=== PATIENT | male | born 1995 | race Caucasian/White ===

== ENCOUNTER 2018-05-20 13:36 | Emergency (ER) | payer OTHER, BC ==
[2018-05-20 13:49] VITALS: BP 121/75
--- NOTE | 2018-05-20 14:18 | XRAY Report ---
Reason: Fall/pain Procedure Date: 05/20/2018 Accession Number: [id number] / [id number] Procedure: XR - Foot 3 View RT CPT Code: FULL RESULT: EXAM: RIGHT FOOT RADIOGRAPHY EXAM DATE: 05/20/2018 02:03 PM. CLINICAL HISTORY: Fall/pain. Pain involving right toes after fall off a roof today. COMPARISON: None. TECHNIQUE: 3 views. FINDINGS: Bones: Acute right second metatarsal neck fracture with mild apex medial angulation. Acute right third metatarsal neck fracture with one half shaft width displacement and apex medial angulation. Acute right fourth metatarsal neck fracture with mild displacement and apex medial angulation. Mild hallux valgus. No dislocation. Normal 34 degree Boehler angle. No radiographic evidence for calcaneal fracture. Joints: Normal tarsal metatarsal joint alignment. Mild hallux valgus. The second tarsometatarsal joint space appears prominent on AP view, question of due to joint effusion. Soft Tissues: Normal. No soft tissue swelling. IMPRESSION: 1. Acute right second, third and fourth metatarsal neck fractures with angulation and displacement detailed above. 2. No radiographic evidence for calcaneal fracture. If high clinical suspicion, consider MRI. [facility]
--- NOTE | 2018-05-20 14:39 | ED Physician Documentation ---
PD HPI LOWER EXT INJURY - Stated complaint Stated Complaint: GLF - Chief complaint Chief Complaint: Ext Problem - History obtained from History obtained from: Patient - History of Present Illness PD HPI LOW EXT INJURY LOCATION: Other (He was up on a roof and his foot got caught and he fell landing directly on the right foot. No other injuries. No head or neck injury. He cannot walk or bear weight on that leg.) Review of Systems Constitutional: denies: Fever, Chills Cardiac: denies: Chest pain / pressure Respiratory: denies: Dyspnea Musculoskeletal: reports: Pain with weight bearing Neurologic: denies: Headache, Head injury PD PAST MEDICAL HISTORY - Past Medical History Past Medical History: No - Past Surgical History Past Surgical History: Yes General: Hiatal hernia repair HEENT: Tonsil/Adenoidectomy - Present Medications Home Medications: Ambulatory Orders Medication Instructions Recorded Confirmed Hydrocodone/Acetaminophen 1 - 2 each PO Q6H PRN #20 tablet 05/20/18 [Hydrocodon-Acetaminophen 5-325] Knee Scooter 1 unit TD ONCE #1 05/20/18 - Allergies Allergies/Adverse Reactions: Allergies Allergy/AdvReac Type Severity Reaction Status Date / Time No Known Drug Allergies Allergy Verified 05/20/18 13:49 - Social History Does the pt smoke?: No Smoking Status: Never smoker Does the pt drink ETOH?: No Does the pt have substance abuse?: No Substance Use and Type: Marijuana - Immunizations Immunizations are current?: Yes - POLST Patient has POLST: No PD ED PE NORMAL - Vitals Vital signs reviewed: Yes - General General: Alert and oriented X 3, No acute distress - HEENT HEENT: PERRL - Neck Neck: Supple, no meningeal sign, No bony TTP - Extremities Extremities: Other (Focal tenderness of the distal right foot without deformity. Toes are warm and well perfused with normal sensation. No ankle or proximal leg tenderness.) - Neuro Neuro: Alert and oriented X 3 - Psych Psych: Normal mood, Normal affect Results - Vitals Vitals: Vital Signs - 24 hr 05/20/18 13:44 Temperature 36.8 C Heart Rate 55 L Respiratory 16 Rate Blood Pressure 121/75 O2 Saturation 100 Oxygen O2 Source Room air - Rads (name of study) 3v R foot Radiology: EMP read contemporaneously (Angulated and displaced second third and fourth metatarsal neck fractures.) Procedures - Splint (location) RLE Splint applied by: Tech Type of splint: Fiberglass, Short leg, Posterior Other: Patient tolerated well, No complications, Neurovascular intact PD MEDICAL DECISION MAKING - Sepsis Event Vital Signs: Vital Signs - 24 hr 05/20/18 13:44 Temperature 36.8 C Heart Rate 55 L Respiratory 16 Rate Blood Pressure 121/75 O2 Saturation 100 Oxygen O2 Source Room air Departure - Departure Disposition: 01 Home, Self Care Clinical Impression: Fracture of second metatarsal bone of right foot Qualifiers: Encounter type: initial encounter Fracture type: closed Fracture alignment: displaced Qualified Code(s): S92.321A - Displaced fracture of second metatarsal bone, right foot, initial encounter for closed fracture Fracture of third metatarsal bone of right foot Qualifiers: Encounter type: initial encounter Fracture type: closed Fracture alignment: displaced Qualified Code(s): S92.331A - Displaced fracture of third metatarsal bone, right foot, initial encounter for closed fracture Fracture of fourth metatarsal bone of right foot Qualifiers: Encounter type: initial encounter Fracture type: closed Fracture alignment: displaced Qualified Code(s): S92.341A - Displaced fracture of fourth metatarsal bone, right foot, initial encounter for closed fracture Condition: Good Record reviewed to determine appropriate education?: Yes Instructions: ED Fx Foot Follow-Up: [facility] [Provider Group] - Within 1 week Prescriptions: Hydrocodone/Acetaminophen [Hydrocodon-Acetaminophen 5-325] 1 - 2 each PO Q6H PRN #20 tablet PRN Reason: pain Knee Scooter 1 unit TD ONCE #1 Comments: Keep the splint on and dry, do not get it wet. Call the orthopedic office on Wednesday for an appointment next week. Do not drink or drive while taking narcotic pain medication. Note that many narcotic pain relievers also contain Tylenol/acetaminophen. Please ensure that your total dose of acetaminophen from all sources does not exceed 3 g (3000 mg) per day. You may get constipated while on this medication. Take a stool softener such as Colace twice a day while you are on it. Also add an [id number] laxative such as senna or MiraLAX on any day that you do not have a bowel movement. If you received a narcotic pain medication or sedative while in the emergency department, do not drive for the next 24 hours. Forms: Activity restrictions
[2018-05-20] MEDS ORDERED: HYDROcod/ACETAM 5/325 MG TABLET PO STA (14:44)
== END 2018-05-20 15:13 | disposition home or self-care (01) ==
LOC: ED 13:36
DX: S92.321A Displaced fracture of second metatarsal bone, right foot, initial encounter for closed fracture (principal); S92.331A Displaced fracture of third metatarsal bone, right foot, initial encounter for closed fracture; S92.341A Displaced fracture of fourth metatarsal bone, right foot, initial encounter for closed fracture; W17.89XA Other fall from one level to another, initial encounter; Y92.008 Other place in unspecified non-institutional (private) residence as the place of occurrence of the external cause
CPT/HCPCS: 29515; 73630; 99283; A9270; 1040M